=== PATIENT | male | born 1960 | race Caucasian/White ===

== ENCOUNTER 2023-03-06 12:58 | Outpatient (CLI) | payer BC | END 2023-03-06 12:59 | disposition home or self-care (01) | LOC: BICMRI 12:58 | PROVIDERS: ATTEND Neurological Surgery | DX: M50.10 Cervical disc disorder with radiculopathy, unspecified cervical region (principal); M47.22 Other spondylosis with radiculopathy, cervical region; M25.78 Osteophyte, vertebrae; M89.38 Hypertrophy of bone, other site; M48.02 Spinal stenosis, cervical region; E04.2 Nontoxic multinodular goiter | CPT/HCPCS: 72141 ==